=== PATIENT | female | born 1950 | race Caucasian/White ===

== ENCOUNTER → 2016-11-30 | Outpatient (CLI) | payer BC ==
[~2016-11-30] MED LIST: CALC500C70 PO; FSMD/70 PO; IBUP-1050 PO; TRAM-453 PO
--- NOTE | 2016-11-30 16:41 | MAMMOGRAPHY REPORT ---
BILATERAL DIGITAL SCREENING MAMMOGRAM TOMOSYNTHESIS WITH CAD: 11/30/2016 CLINICAL HISTORY: Routine screening. Patient has no complaints. TECHNIQUE: Breast tomosynthesis in addition to standard 2D mammography was performed. Current study was also evaluated with a Computer Aided Detection (CAD) system. COMPARISON: Comparison is made to exams dated: 11/25/2015 mammogram, 11/23/2014 mammogram, 11/21/2013 mammogram, 11/18/2012 mammogram, 11/16/2011 mammogram, and 11/15/2010 mammogram - [facility]. BREAST COMPOSITION: There are scattered areas of fibroglandular density in both breasts. FINDINGS: No suspicious masses, calcifications, or areas of architectural distortion are noted in e ither breast. There has been no significant interval change compared to prior exams. IMPRESSION: ACR BI-RADS CATEGORY 1: NEGATIVE There is no mammographic evidence of malignancy. A 1 year screening mammogram is recommended. The p atient will receive written notification of the results. Approximately 10% of breast cancers are not detected with mammography. A negative mammographic repor t should not delay biopsy if a clinically suggestive mass is present. Jeannie Malik M.D. /:11/30/2016 15:18:52 Booking Officer: Odessa GOMEZ(Itzel)(Karlie), [facility] letter sent: Normal 1/2 BI-RADS Code: ACR BI-RADS Category 1: Negative
== END | disposition home or self-care (01) ==
LOC: C.MAMM 09:02
PROVIDERS: ATTEND Obstetrics & Gynecology
DX: Z12.31 Encounter for screening mammogram for malignant neoplasm of breast (principal)

== ENCOUNTER → 2017-02-07 | Day surgery (SDC) | payer BC ==
[2017-01-17 11:38] VITALS: Ht 152.4 cm; Wt 50.9 kg
[~2017-02-07] VITALS: Ht 152.4 cm; Wt 50.9 kg
[~2017-02-07] MED LIST changes: +ATROPINE SULFATE 0.1 MG/ML 5ML SYR IV PRN; +BUPIVACAINE 0.5 % 5 MG/1 ML PF 10ML VIAL ONE; +CEFAZOLIN 1000MG/55 ML D5W IV SCH; +EpHEDrine SULFATE INJ 50 MG/ML AMP IV PRN; +FENTANYL CITRATE INJ 50 MCG/1 ML 2 ML VIAL ONE; +HYDROmorphone INJ 2 MG/ML SYR/VIAL IV PRN; -IBUP-1050 PO; +LACTATED RINGER'S 1000ML 1,000 ML IV SCH; +LIDOCAINE HCL 2% 2 ML VIAL (20MG/ML) ONE; +LIDOCAINE HCL 2% LOCAL 20 ML VIAL ONE; +MIDAZOLAM HCL 1 MG/ML 2ML VIAL ONE; +ONDANSETRON INJ 2 MG/ML 2 ML VIAL IV PRN; +ONDANSETRON INJ 2 MG/ML 2 ML VIAL ONE; +PHENYLEPHRINE 100MCG/ML 5ML SYR IV PRN; +PROPOFOL IV EMULSION 10 MG/ML 20 ML VIAL IV ONE; +SODIUM CHLORIDE 0.9% 1000ML 1,000 ML IV SCH; +TRAMADOL HCL 50 MG TAB PO PRN
--- NOTE | 2017-02-07 13:07 | History & Physical Bridge - SC ---
H&P Re-Evaluation Bridge Note: I have examined the patient, reviewed the History & Physical and in the interval since the performance of the History & Physical I have noted the following changes of clinical significance: No changes noted
[2017-02-07] MEDS: LIDOCAINE HCL 1% 20 ML VIAL ONE ×2 (13:35→13:36)
--- NOTE | 2017-02-07 13:48 | [facility] Post Operative Brief Note ---
Immediate Operative Summary Operative Date Feb 07, 2017. 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 Balderas Boring Machine Operator Production Surgeon(s) Jey Bender PA-C Estimated Blood Loss Minimal Findings Left 4th toe mucous cyst Specimens A.) Left 4th Toe Anesthesia Local with IV Sedation Complication(s) None Disposition Recovery Room / PACU
--- NOTE | 2017-02-07 13:52 | Discharge Instructions-SurgCtr ---
Discharge Instructions Date of Service Feb 07, 2017. Visit Reason for Visit: [id number] Discharge Discharge Diagnosis / Problem: left 4th toe, DJD, mucous cyst Discharge Goals Goal(s): Decrease discomfort, Therapeutic intervention Activity Recommendations Activity Limitations: per Instructions/Follow-up section Weightbearing Status: Left weightbearing (as tolerated) Anesthesia . Post Anesthesia Instructions: If you have had General Anesthesia or IV Sedation: * Do not drive today. * Resume driving when surgeon permits. * Do not make important decisions or sign legal documents today. * Call surgeon for: 1. Temperature elevations greater than 101 degrees F. 2. Uncontrollable pain. 3. Excessive bleeding. 4. Persistent nausea and vomiting. 5. Medication intolerance (nausea, vomiting or rash). * For nausea and vomiting use only clear liquids such as: tea, soda, bouillon until nausea subsides, then gradually increase diet as tolerated. * If you have any concerns or questions, call your surgeon's office. If physician is unavailable and it is an emergency, call 911 or go to the nearest emergency room. . Instructions / Follow-Up Instructions / Follow-Up MEDICATIONS: * Resume previous medications unless instructed otherwise by your surgeon. * Always take pain medication on a full stomach or with food to avoid upset stomach. * Do not drink alcohol or drive while taking narcotics. * Ibuprofen or Tylenol may be taken if narcotic not needed. SPECIAL CARE INSTRUCTIONS: __ None __ Keep extremity elevated and iced x 48 hours; apply ice 20-30 minutes 8-10 times/day. May remove at night. __ Crutches __ May discard when able _x_ Post-op shoe __ 24 hrs/day __ Remove at night _x_ Dressing _x_ Maintain until seen in office, may shower with plastic over site __ Remove dressings in 24-48 hours and then may shower __ Cover incisions with band-aids after showering __ Do not remove steri-strips Call physician if chills or temperature rises above 102 degrees or pain unrelieved by prescribed pain medications. Office [phone] follow up in 2 weeks Diet Recommendations Home Diet: resume previous diet Procedures Procedures Performed: Left Fourth Toe Amputation Pending Studies Studies pending at discharge: no Medical Emergencies . Who to Call and When: Medical Emergencies: If at any time you feel your situation is an emergency, please call 911 immediately. . Non-Emergent Contact Non-Emergency issues call your: Surgeon . . "Provider Documentation" section prepared by Javi Bender.
[2017-02-07 13:54] VITALS: TEMP 36.3
[2017-02-07 14:17] VITALS: BP 119/74; PULSE 50; O2SAT 99
--- NOTE | 2017-02-07 14:33 | Anesthesia Progress Nt - [facility] ---
Anesthesia Post Op Note Date & Time Feb 07, 2017 at 14:32 Vital Signs Pain Intensity: 0 Vital Signs Past 12 Hours Date Time Temp Pulse Resp B/P Pulse Ox O2 Delivery O2 Flow Rate FiO2 02/07/17 14:17 50 16 119/74 99 Room Air 02/07/17 13:54 36.3 57 16 94/60 98 Room Air 02/07/17 12:15 36.6 62 20 137/69 100 Room Air Notes Mental Status: alert / awake / arousable, participated in evaluation Pt Amnestic to Procedure: Yes Nausea / Vomiting: adequately controlled Pain: adequately controlled Airway Patency, RR, SpO2: stable & adequate BP & HR: stable & adequate Hydration State: stable & adequate Anesthetic Complications: no major complications apparent
--- NOTE | 2017-02-07 16:41 | OPERATIVE REPORT ---
DATE OF OPERATION: 02/07/2017 SURGEON: Siva Balderas MD EDGING CATCHER: ISAAC Kim PREOPERATIVE DIAGNOSIS: Left recurrent mucous cyst at the DIP joint to the fourth toe. POSTOPERATIVE DIAGNOSIS: Same. PROCEDURE PERFORMED: Left fourth toe amputation. COMPLICATIONS: None. ESTIMATED BLOOD LOSS: Minimal. TOURNIQUET TIME: 8 minutes at 300 mmHg. OPERATIVE INDICATIONS: The patient is a 66-year-old white female who has about a year history of recurrent and persistent mucous cyst of her DIP joint of the 4th toe. She had been through extensive care by the wire wheeler including various modality treatment. This continued to come back, drain and bother her and it was difficult with shoe wear. She elected to proceed with amputation. OPERATIVE PROCEDURE: The patient taken to the operating room, identified and placed on operative table in supine position. All contact areas were appropriately padded. IV antibiotics were provided by the anesthesia team. A left ankle tourniquet was placed. Some IV sedation was provided. A digital block of the fourth toe was then provided with 8 mL of 50:50 combination of 0.5% Marcaine and 2% lidocaine. The foot was then prepped and draped in the usual sterile fashion. The left leg was elevated and exsanguinated with Esmarch and tourniquet was placed at 300 mmHg. A fish mouth incision was made essentially at the apex at the PIP joint. Full thickness flaps were developed directly down to the bone. I then disarticulated the toe at the PIP joint and removed it. We then skeletonized the proximal phalanx back to about the mid portion. I then used a bone rongeur to transect the proximal phalanx about the mid portion. I then identified the flexor and extensor tendons, I applied traction to them, and cut them and allowed them to retract to make sure there was no deforming force on the remaining bone. I elected to leave the base of the proximal phalanx in order to maintain the toe space. Once this was complete, I irrigated the wound extensively. The tourniquet was then let down for a tourniquet time of 8 minutes. Hemostasis was assured with use of electrocautery. The skin was then closed with 4-0 nylon suture in a simple fashion. The foot was then cleaned and dried and a sterile dressing with Xeroform, 4 x 4, sterile cast padding and a Coban wrap were applied. The patient then transferred to the recovery room in stable condition. The patient tolerated the procedure well without any complications. All needle and sponge counts were correct at the end of the operation. I attest to the content of the Intraoperative Record and any orders documented therein. Any exceptio ns are noted below.
== END | disposition home or self-care (01) ==
LOC: X.SURG 12:07
PROVIDERS: ATTEND Orthopaedic Surgery Sports Medicine
DX: M19.90 Unspecified osteoarthritis, unspecified site (principal); M71.38 Other bursal cyst, other site; Z98.890 Other specified postprocedural states; Z90.710 Acquired absence of both cervix and uterus

== ENCOUNTER → 2017-12-06 | Outpatient (CLI) | payer BC ==
[~2017-12-06] MED LIST changes: -ATROPINE SULFATE 0.1 MG/ML 5ML SYR IV PRN; -BUPIVACAINE 0.5 % 5 MG/1 ML PF 10ML VIAL ONE; -CEFAZOLIN 1000MG/55 ML D5W IV SCH; -EpHEDrine SULFATE INJ 50 MG/ML AMP IV PRN; -FENTANYL CITRATE INJ 50 MCG/1 ML 2 ML VIAL ONE; -HYDROmorphone INJ 2 MG/ML SYR/VIAL IV PRN; -LACTATED RINGER'S 1000ML 1,000 ML IV SCH; -LIDOCAINE HCL 2% 2 ML VIAL (20MG/ML) ONE; -LIDOCAINE HCL 2% LOCAL 20 ML VIAL ONE; -MIDAZOLAM HCL 1 MG/ML 2ML VIAL ONE; -ONDANSETRON INJ 2 MG/ML 2 ML VIAL IV PRN; -ONDANSETRON INJ 2 MG/ML 2 ML VIAL ONE; -PHENYLEPHRINE 100MCG/ML 5ML SYR IV PRN; -PROPOFOL IV EMULSION 10 MG/ML 20 ML VIAL IV ONE; -SODIUM CHLORIDE 0.9% 1000ML 1,000 ML IV SCH; -TRAM-453 PO; -TRAMADOL HCL 50 MG TAB PO PRN
--- NOTE | 2017-12-06 14:35 | MAMMOGRAPHY REPORT ---
BILATERAL DIGITAL SCREENING MAMMOGRAM TOMOSYNTHESIS WITH CAD: 12/06/2017 CLINICAL HISTORY: Routine screening. Patient has no complaints. TECHNIQUE: Breast tomosynthesis in addition to standard 2D mammography was performed. Current study was also evaluated with a Computer Aided Detection (CAD) system. COMPARISON: Comparison is made to exams dated: 11/30/2016 mammogram, 11/25/2015 mammogram, 11/23/2014 m ammogram, 11/21/2013 mammogram, 11/18/2012 mammogram, and 11/16/2011 mammogram - [facility]. BREAST COMPOSITION: There are scattered areas of fibroglandular density in both breasts. FINDINGS: No suspicious masses, calcifications, or areas of architectural distortion are noted in ei ther breast. There has been no significant interval change compared to prior exams. Left inferior br east asymmetry has the appearance of normal overlapping fibroglandular tissue on the tomosynthesis im ages. IMPRESSION: ACR BI-RADS CATEGORY 2: BENIGN There is no mammographic evidence of malignancy. A 1 year screening mammogram is recommended. The pa tient will receive written notification of the results. Approximately 10% of breast cancers are not detected with mammography. A negative mammographic report should not delay biopsy if a clinically suggestive mass is present. Jaennie Malik M.D. ah/:12/06/2017 10:11:16 Reflow Operator: Debbie ORDOÑEZ)(M), [facility] letter sent: Normal 1/2 BI-RADS Code: ACR BI-RADS Category 2: Benign
== END | disposition home or self-care (01) ==
LOC: C.MAMM 09:02
PROVIDERS: ATTEND Family Medicine
DX: Z12.31 Encounter for screening mammogram for malignant neoplasm of breast (principal)